=== PATIENT | female | born 1965 | race Caucasian/White ===

== ENCOUNTER → 2021-04-20 | Outpatient (CLI) | payer OTHER ==
[~2021-04-20] MED LIST: ESTR2 PO; HYDPAM50 PO; IBUP800 PO; LEVSOD88 PO; PROM25 PO; Percocet 5-3251 EACH PO
== END ==
LOC: LAB SHORT 08:36
DX: L98.9 Disorder of the skin and subcutaneous tissue, unspecified (principal); L40.9 Psoriasis, unspecified; L30.9 Dermatitis, unspecified
CPT/HCPCS: 88305; 88312

== ENCOUNTER → 2023-01-12 | Outpatient (CLI) | payer OTHER ==
[2023-01-23 10:50] LABS: Stool Occult Bld Immuno 1 Negative (NEGATIVE)
== END | disposition home or self-care (01) ==
LOC: LAB SHORT 12:00 → LAB 12:00 → LAB SHORT 01-22 12:00
PROVIDERS: Physician Assistant
DX: Z12.11 Encounter for screening for malignant neoplasm of colon (principal)
CPT/HCPCS: G0328